=== PATIENT | female | born 1985 | race Caucasian/White ===

== ENCOUNTER 2021-12-25 23:28 | Emergency (ER) | payer OTHER ==
[2021-12-25 23:39] VITALS: BP 114/77; PULSE 77; RESP 18; TEMP 98.4; BMI 24.5
[2021-12-26] MEDS ORDERED: diphenhydrAMINE HCL 25 MG CAPSULE (FP) PO ONE ×2 (00:30→00:35)
[2021-12-26] MEDS ORDERED: predniSONE 20 MG TABLET (UD) PO ONE (00:30)
[2021-12-26] MEDS ORDERED: predniSONE 20 MG TABLET (UD) ONE (00:35)
[2021-12-26] MEDS ORDERED: BACITRACIN 15 GM TUBE TOPICAL OINTMENT ONE (00:59)
== END 2021-12-26 00:55 | disposition home or self-care (01) ==
LOC: JER 23:28
DX: R21 Rash and other nonspecific skin eruption (principal)
CPT/HCPCS: 99283-25

== ENCOUNTER 2022-01-18 19:42 | Emergency (ER) | payer OTHER ==
[2022-01-18 19:54] VITALS: BP 124/86; PULSE 70; RESP 19; TEMP 98.6; BMI 26.1
[2022-01-18 23:44] LABS: ALBUMIN 3.7 g/dl (3.4-5.0); BLOOD UREA NITROGEN 12.6 mg/dL (7-18); CALCIUM 8.9 mg/dL (8.5-10.1)
[2022-01-18 23:47] LABS: CREATININE 0.9 mg/dL (0.55-1.3)
[2022-01-18 23:49] LABS: BILIRUBIN,TOTAL 0.1 mg/dL (0.2-1); TOT PROT 7.8 g/dl (6.4-8.2)
[2022-01-18 23:53] LABS: EOS % 6.5 % (0-4.5); HEMATOCRIT 38.1 % (32.4-45.2); HEMOGLOBIN 11.8 GM/dL (10.7-15.3); LYMPH % 38.1 % (8-40); MCH 25.5 pg (25.7-33.7); MEAN CELL VOLUME 82.3 fl (80-96); MEAN PLT VOLUME 8.3 fl (7.5-11.1); MONO % 7.1 % (3.8-10.2); NEUT % 47.3 % (42.8-82.8); PLATELET COUNT 352 10^3/uL (134-434); RBC 4.63 M/mm3 (3.60-5.2); RDW 17.7 % (11.6-15.6); WHITE BLOOD COUNT 7.5 K/mm3 (4.0-10.0)
== END 2022-01-19 01:29 | disposition home or self-care (01) ==
LOC: JERFT 19:42 → JER 19:42
DX: N93.9 Abnormal uterine and vaginal bleeding, unspecified (principal)
CPT/HCPCS: 36415; 76830-TC; 80053; 84703; 85025; 86850; 86900; 86901; 99284-25

== ENCOUNTER 2022-03-18 18:12 | Emergency (ER) | payer OTHER ==
[2022-03-18 18:44] VITALS: BP 110/72; PULSE 85; RESP 18; TEMP 99.2; BMI 21.7
[2022-03-18] MEDS ORDERED: DEXAMETHASONE SOD PHOSPHATE 10 MG/1 ML VIAL IM ONE (19:03)
[2022-03-18] MEDS ORDERED: diphenhydrAMINE HCL 25 MG CAPSULE (FP) PO ONE ×2 (19:03→19:11)
[2022-03-18] MEDS ORDERED: DEXAMETHASONE SOD PHOSPHATE 10 MG/1 ML VIAL ONE (19:11)
== END 2022-03-18 19:32 | disposition home or self-care (01) ==
LOC: JERFT 18:12
PROC: 3E0233Z Introduction of Anti-inflammatory into Muscle, Percutaneous Approach (ICD-10-PCS; principal; 2022-03-18)
DX: L30.8 Other specified dermatitis (principal); L03.115 Cellulitis of right lower limb; L03.116 Cellulitis of left lower limb
CPT/HCPCS: 99284-25; J1100